=== PATIENT | male | born 1975 | race Native Hawaiian/Other Pacific Islander ===

== ENCOUNTER 2017-08-28 09:15 | Outpatient (CLI) | payer BC | END 2017-08-28 21:46 | disposition home or self-care (01) | LOC: US 09:15 | DX: R10.84 Generalized abdominal pain (principal) ==

== ENCOUNTER 2017-09-11 10:18 | Outpatient (CLI) | payer BC | END 2017-09-11 21:48 | disposition home or self-care (01) | LOC: US 10:18 | DX: R10.84 Generalized abdominal pain (principal) ==

== ENCOUNTER 2017-09-28 11:59 | Outpatient (CLI) | payer BC | END 2017-09-28 19:39 | disposition home or self-care (01) | LOC: NM 11:59 | DX: R10.10 Upper abdominal pain, unspecified (principal) | CPT/HCPCS: A9537 ==